=== PATIENT | male | born 1970 | race Hispanic/Latino ===

== ENCOUNTER 2018-12-20 16:03 | Emergency (ER) | payer OTHER ==
[2018-12-20] MEDS ORDERED: LORAZEPAM 2 MG/ML 1 ML VIAL ONE (16:05)
[2018-12-20] MEDS ORDERED: SODIUM CHLORIDE 0.9% 1000ML 0 ML IV ONE (16:14)
[2018-12-20] MEDS ORDERED: SODIUM CHLORIDE 0.9% 1000ML 1,000 ML IV ONE ×3 (16:18→17:26)
[2018-12-20 16:19] LABS: BASOPHILS % (AUTO) 0.3 % (0.0-5.0); LYMPHOCYTES % (AUTO) 30.8 % (21.0-51.0); MEAN CORPUSCULAR HGB CONC 33.2 g/dL (32.0-36.0); MEAN CORPUSCULAR VOLUME 99.5 fL (79-99); MONOCYTES % (AUTO) 4.3 % (3.0-13.0); NEUTROPHILS % (AUTO) 64.6 % (40.0-77.0); RED BLOOD CELL COUNT(AUTO) 4.83 MIL/uL (4.50-6.20); RED CELL DISTRIBUTION WIDTH 13.7 % (11.0-15.5)
[2018-12-20 16:20] LABS: APPEARANCE,URINE Clear (CLEAR); BILIRUBIN,URINE Negative (NEGATIVE); COLOR,URINE Yellow (YELLOW); GLUCOSE, URINE (UA) Negative (NEGATIVE); KETONES,URINE Negative (NEGATIVE); LEUKOCYTE ESTERASE ,URINE Negative (NEGATIVE); NITRATE,URINE Negative (NEGATIVE); OCCULT BLOOD,URINE Negative (NEGATIVE); PROTEIN,URINE Trace mg/dL (NEGATIVE)
[2018-12-20 16:28] LABS: POTASSIUM 3.5 mmol/L (3.5-5.1)
[2018-12-20 16:31] LABS: AMPHET/METH SCREEN,URINE NEGATIVE (NEGATIVE); BARBITURATE SCREEN, URINE NEGATIVE (NEGATIVE); BENZODIAZEPINES SCREEN,URINE NEGATIVE (NEGATIVE); CANNABINOID SCREEN,URINE NEGATIVE (NEGATIVE); COCAINE SCREEN,URINE POSITIVE (NEGATIVE); OPIATE SCREEN,URINE NEGATIVE (NEGATIVE); PHENCYCLIDINE SCREEN,URINE NEGATIVE (NEGATIVE)
[2018-12-20 16:33] LABS: ALBUMIN 4.3 g/dL (3.5-5.0); BILIRUBIN,TOTAL 0.3 mg/dL (0.2-1.0); TOTAL PROTEIN, SERUM 9.4 g/dL (6.0-8.3)
[2018-12-20] MEDS ORDERED: THIAMINE HCL 100 MG/ML 2ML VIAL ONE (16:35)
[2018-12-20 16:36] LABS: AMMONIA 52 umol/L (11-32); LIPASE 155 U/L (114-286)
[2018-12-20] MEDS ORDERED: M.V.I. IV [ADULT] 10 ML VIAL IV ONE (16:36)
[2018-12-20] MEDS ORDERED: FOLIC ACID 5 MG/ML 10 ML VIAL ONE (16:37)
[2018-12-20 16:41] LABS: RBC,URINE 0-1 /HPF (0-1)
[2018-12-20 16:42] LABS: BACTERIA,URINE Rare /HPF (None Seen); SQUAMOUS EPITHELIAL CELL,UR 0-2 /HPF (0-2)
[2018-12-20 16:43] LABS: PLATELET COUNT (AUTO) 726 K/uL (130-400)
[2018-12-20 16:48] LABS: INR 0.93 (0.85-1.15); PARTIAL THROMBOPLASTIN TIME 24.1 SEC (26.3-35.5); PROTHROMBIN TIME 9.8 SEC (9.6-11.6)
[2018-12-20 17:02] LABS: PLATELET MORPHOLOGY COMMENT MARKED INCREASE
== END 2018-12-20 18:19 | disposition home or self-care (01) ==
LOC: EDH 16:03
DX: T40.5X2A Poisoning by cocaine, intentional self-harm, initial encounter (principal); G40.89 Other seizures; F10.10 Alcohol abuse, uncomplicated; R79.1 Abnormal coagulation profile; Z72.0 Tobacco use; Y92.89 Other specified places as the place of occurrence of the external cause
CPT/HCPCS: 36415; 70450; 71045; 80053; 80305; 81001; 82140; 82948; 83690; 85025; 85610; 85730; 93005; 96365; 96375; 99291; J2060; J3411; J3490; J7030 ×3